=== PATIENT | female | born 1945 | race Caucasian/White ===

== ENCOUNTER → 2019-05-02 | Outpatient (CLI) | payer MEDICARE, OTHER ==
[~2019-05-02] MED LIST: Adult Low Dose81 MG PO; D3-20002000 UNIT PO; LISHYD1012 PO; Omeprazole20 M1 PO; RANI150 PO; ZOLP10 PO
[2019-05-02 11:58] LABS: Source, Urine Clean Catch
[2019-05-02 13:11] LABS: Appearance, Urine Hazy (Clear); Bilirubin, Urine Neg (Neg); Blood, Urine 3+ (Neg); Color, Urine Yellow (P-Yellow); Glucose Qualitative, Urine Neg (Neg); Ketones, Urine 3+ (Neg); Leukocyte Esterase, Urine 3+ (Neg); Nitrite, Urine Neg (Neg); Protein, Urine 1+ (Neg); Specific Gravity, Urine 1.015 (1.003-1.022); Urobilinogen, Urine NORM (Normal)
[2019-05-02 13:29] LABS: Bacteria Many /hpf; Mucus Light (0-Heavy); Squamous Epithelial Cells Few /hpf (Few); White Blood Cells, Urine TNTC /hpf (0-5)
[2019-05-04 15:07] LABS: HPV 16 Negative (Negative); HPV 18 Negative (Negative); HPV OTHER HR TYPES Negative (Negative)
== END | disposition home or self-care (01) ==
LOC: LAB 11:35 → LAB SHORT 11:35
PROVIDERS: Obstetrics & Gynecology
DX: Z01.411 Encounter for gynecological examination (general) (routine) with abnormal findings (principal); R35.0 Frequency of micturition
CPT/HCPCS: 81001; 87077; 87086; 87186; 87624; G0123

== ENCOUNTER → 2022-02-16 | Outpatient (CLI) | payer MEDICARE, OTHER ==
[~2022-02-16] MED LIST changes: +ACET500 PO; +FAMO20 PO; +IBUP400 PO
== END | disposition home or self-care (01) ==
LOC: LAB SHORT 14:20 → LAB 14:20
DX: T84.038A Mechanical loosening of other internal prosthetic joint, initial encounter (principal); M23.51 Chronic instability of knee, right knee; M25.569 Pain in unspecified knee; Z96.60 Presence of unspecified orthopedic joint implant
CPT/HCPCS: 87070; 87075; 87205

== ENCOUNTER 2022-03-17 06:04 | Inpatient (IN) | payer MEDICARE, OTHER ==
[~2022-03-17] VITALS: Ht 167.6 cm; Wt 78.0 kg
--- NOTE | 2022-03-17 07:51 | NUR ---
LATE ENTRY: Ambulatory in Day Surgery Surgical site prepped with 2% Chlorhexidine cloth wipe. History, Chart, Medications and Allergies reviewed before start of procedure.Lungs clear T/O to Auscultation. Patient confirms NPO status and agrees with scheduled surgery. Patient reports completing Chlorhexadine shower X2 prior to admission to hospital.
--- NOTE | 2022-03-17 08:02 | NUR ---
LATE ENTRY: PATIENT DELAYED TO OR D/T ANESTHESIA PLAN OF CARE CHANGE AND PATIENT SLOW TO AMBULATE TO BR
--- NOTE | 2022-03-17 09:02 | NUR ---
03/17/22 0902 Jessica Bright PATIENT RECEIVED VANCO 1GM IN THE PREOP SETTING PRIOR TO ARRIVING IN THE OR.
[2022-03-17] MEDS ORDERED: ASPI81CH PO (09:52)
[2022-03-17] MEDS ORDERED: OXAYDO5 M1 PO (09:53)
[2022-03-17] MEDS ORDERED: PROM25 PO (09:54)
[2022-03-17] MEDS ORDERED: SULTRIDS PO (09:54)
[2022-03-17 12:35] LABS: BODY FLUID RBC 0.012 M/mm3 (0-0); RBC Count, Synovial Fluid 12000 /mm3 (0-0); WBC Count, Synovial Fluid 487 /mm3 (0-180)
--- NOTE | 2022-03-17 13:07 | NUR ---
PATIENT CAME BACK FROM PACU TODAY 03/17/22 AT 1240. POD 0 RIGHT TOTAL KNEE REVISION PATIENT IS DROWSY BUT EASILY AROUSABLE WITH TOUCH AND VOICE. BP IS A LITTLE LOW BUT IV FLUIDS ARE RUNNING. PATIENT IS ON 2L NC WITH >90% OXYGEN SATS. PAIN IS MANAGED WITH IV TORADOL AT THIS TIME. PATIENT IS ABLE TO MOVE FINGERS AND TOES WHEN ASKED. RIGHT KNEE HAS ANGIE WRAP AND POLAR PACK IN PLACE THAT IS C/D/I. PATIENT TOLERATED A SMALL AMOUNT OF LIQUID SO FAR. BED ALARM ON JUST IN CASE. CALL LIGHT WITHIN REACH. IS NOW AT BEDSIDE.
[2022-03-17 13:23] LABS: Lymphs, Synovial Fluid 33 % (0-15); Monocytes/Macrophages, Synovia 57 % (0-65); Neutrophils, Synovial Fluid 5 % (0-24)
[2022-03-17 13:24] LABS: Other Cells, Synovial Fluid 5 % (0-0)
[2022-03-17 13:27] LABS: Appearance, Synovial Fluid Cloudy (Clear)
[2022-03-17 13:28] LABS: Color, Synovial Fluid Brown (None-P Yel)
--- NOTE | 2022-03-17 15:13 | NUR ---
SHIFT SUMMARY: POD 0 RIGHT TOTAL KNEE PATIENT IS MORE AWAKE THIS AFTERNOON AND IS A&OX4. VS ARE WNL AND IS ON RA. PATIENT DENIES PAIN AT THIS TIME THOUGH COMPLAINS OF HAVING NUMBNESS ON HER RIGHT KNEE DOWN BUT CAN MOVE TOES/FEEL PRESSURE. PATIENT IS TOLERATING A SMALL AMOUNT OF PO INTAKE AND HAS VOIDED. RIGHT KNEE HAS ANGIE WRAP THAT IS C/D/I. CALLS APPROPRIATELY. CALL LIGHT WITHIN REACH. THE PLAN IS TO HAVE PAIN MANAGED AND TO WORK WITH PT TOMORROW.
[2022-03-18 04:21] LABS: BASOPHILS ABSOLUTE AUTO 0.03 K/mm3 (0.00-0.23); BASOPHILS PERCENT AUTO 0 % (0-2); EOSINOPHILS ABSOLUTE AUTO 0.08 K/mm3 (0.00-0.68); EOSINOPHILS PERCENT AUTO 1 % (0-6); Hematocrit 22.7 % (33.0-51.0); Hemoglobin 7.2 g/dL (11.5-16.0); IMMATURE GRAN ABSOLUTE AUTO 0.02 K/mm3 (0.00-0.10); IMMATURE GRAN PERCENT AUTO 0 % (0-1); LYMPHOCYTES ABSOLUTE AUTO 1.21 K/mm3 (0.84-5.20); LYMPHOCYTES PERCENT AUTO 13 % (21-46); MONOCYTES ABSOLUTE AUTO 1.18 K/mm3 (0.16-1.47); MONOCYTES PERCENT AUTO 13 % (4-13); Mean Corpuscular HGB 30.9 pg (26.0-34.0); Mean Corpuscular HGB Conc 31.7 g/dL (31.5-36.5); Mean Corpuscular Volume 97 fL (80-100); Mean Platelet Volume 11.1 fL (9.1-12.4); NEUTROPHILS PERCENT AUTO 72 % (41-73); Platelet Count 202 K/mm3 (150-400); RDW Coefficient Variation 14.3 % (11.7-14.2); RDW Standard Deviation 50.4 fL (35.1-46.3); Red Blood Cell Count 2.33 M/mm3 (3.80-5.20); White Blood Cell Count 9.12 K/mm3 (4.00-11.30)
[2022-03-18 04:39] LABS: Magnesium, Blood 2.2 mg/dL (1.6-2.4)
[2022-03-18 04:40] LABS: Bun/Creatinine Ratio 23.4 (12.0-20.0); Calcium, Blood 8.5 mg/dL (8.5-10.1); Creatinine, Blood 0.77 mg/dL (0.40-1.00); Potassium, Blood 3.3 mmol/L (3.5-5.5)
--- NOTE | 2022-03-18 05:06 | NUR ---
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 PT AAOX4 AND PLEASANT. POD 0 R TOTAL KNEE REVISION. PT HAS BEEN AMBULATING WELL WITH STANDBY ASSIST TO THE BATHROOM. REPORTED SOME NUMBNESS TO R FOOT AFTER SURGERY BUT STATES IT HAS IMPROVED SLOWLY. PT REPORTS MINIMAL PAIN AND HAS BEEN COMFORTABLE WITH SCHEDULED TYLENOL AND TORADOL. VSS, WILL CONTINUE TO MONITOR.
--- NOTE | 2022-03-18 10:24 | NUR ---
PT CLEARED PHYSICAL THERAPY, DC'D HOME, DC INSTRUCTIONS GIVEN, VERBALIZED UNDERSTANDING, IV DC'D, CATH INTACT.
== END 2022-03-18 10:25 | disposition home or self-care (01) | DRG 468 ==
LOC: SURS 06:04 → PRE IP 07:30 → SURS 12:43
PROVIDERS: ADMIT Orthopaedic Surgery
PROC: 0SRT0J9 Replacement of Right Knee Joint, Femoral Surface with Synthetic Substitute, Cemented, Open Approach (ICD-10-PCS; 2022-03-17)
PROC: 0SPV0JZ Removal of Synthetic Substitute from Right Knee Joint, Tibial Surface, Open Approach (ICD-10-PCS; 2022-03-17)
PROC: 0SRV0J9 Replacement of Right Knee Joint, Tibial Surface with Synthetic Substitute, Cemented, Open Approach (ICD-10-PCS; 2022-03-17)
PROC: 0SPC0JZ Removal of Synthetic Substitute from Right Knee Joint, Open Approach (ICD-10-PCS; 2022-03-17)
PROC: 0SHC08Z Insertion of Spacer into Right Knee Joint, Open Approach (ICD-10-PCS; 2022-03-17)
PROC: 0SPT0JZ Removal of Synthetic Substitute from Right Knee Joint, Femoral Surface, Open Approach (ICD-10-PCS; principal; 2022-03-17 07:30)
DX: T84.032A Mechanical loosening of internal right knee prosthetic joint, initial encounter (principal); M23.51 Chronic instability of knee, right knee; Z79.899 Other long term (current) drug therapy; Z90.49 Acquired absence of other specified parts of digestive tract; Z87.891 Personal history of nicotine dependence; Z98.49 Cataract extraction status, unspecified eye; Z90.722 Acquired absence of ovaries, bilateral; Y79.2 Prosthetic and other implants, materials and accessory orthopedic devices associated with adverse incidents
CPT/HCPCS: 36415; 73560-RT; 80048; 83735; 85025; 88304; 89051; 97110; 97116; 97162; A9270; C1713; C1776; J0171; J0690; J0735; J1100; J1885; J2250; J2370; J2405; J2704; J2795; J3010; J3370; J7050; J7060; J7120